=== PATIENT | male | born 1960 | race Two or more races ===

== ENCOUNTER 2018-02-24 08:06 | Day surgery (SDC) | payer OTHER ==
--- NOTE | 2018-02-09 08:34 | HP ---
DATE OF ADMISSION: 02/24/2018 DATE OF DICTATION: 01/12/2018 REASON FOR ADMISSION: Soft tissue mass, left chest. BRIEF HISTORY: This is a 57-year-old gentleman with a longstanding history of having a mass on the left side of his chest. The mass has gotten larger. He now wishes to have this removed. It occasionally causes him discomfort as well. PAST MEDICAL HISTORY: No coronary disease, hypertension, or diabetes. PAST SURGICAL HISTORY: None. MEDICATIONS: None. ALLERGIES: None. SOCIAL HISTORY: Patient smokes 4-5 cigarettes a day. He does not drink. PHYSICAL EXAMINATION: Left Chest: On the lateral aspect of the left chest, patient has a soft tissue mass, approximately the size of a flattened out egg. It is 3-4 cm in length and probably about 3 cm in width. The mass is mobile anteriorly, but posteriorly, it is clearly tethered. IMPRESSION/PLAN: Suspect intramuscular or subfascial lipoma, left chest. We will plan for excision in the operating room. The indications, alternatives, and complications were discussed. Questions answered. We will plan to obtain written consent the day of surgery. Shawanda SHEARER [id number] cc: Melva Yu MD, [address] [place] [address] [phone]
[2018-02-23 08:24] VITALS: BMI 25.8
[2018-02-24] MEDS ORDERED: ceFAZolin SODIUM 1 GM VIAL IVPB ONE (08:25)
[2018-02-24] MEDS ORDERED: LIDOCAINE 1%/EPI 1:100000 (50 ML MULTI DOSE VIAL) INF ONE (08:30)
[2018-02-24 09:06] VITALS: TEMP 97.6
--- NOTE | 2018-02-24 09:06 | HP ---
DATE OF ADMISSION: 02/24/2018 BRIEF HISTORY: This is a gentleman whom I met in January of 2018, but due to the [facility] guidelines of 30 days, this history and physical is being redictated. Please refer to that previous dictation for complete details. This is a 57-year-old gentleman with a soft tissue mass, left chest. He is here for excision. PAST MEDICAL HISTORY: No coronary artery disease, hypertension, or diabetes. PAST SURGICAL HISTORY: None. MEDICATIONS: None. ALLERGIES: None. SOCIAL HISTORY: Patient smokes 4-5 cigarettes a day, does not drink. PHYSICAL EXAMINATION: Left Chest: There is a soft tissue mass the size of a flattened-out egg. It is approximately 3-4 cm in length and 3 cm in width. The mass is mobile, but tethered posteriorly. IMPRESSION/PLAN: Soft tissue mass, left chest. Findings consistent with probable lipoma. Will plan for excision in the operating room. Shawanda SHEARER [id number] cc: Melva Yu M.D. MTDD
--- NOTE | 2018-02-24 09:51 | OP ---
DATE OF OPERATION: 02/24/2018 PREOPERATIVE DIAGNOSIS: Left chest soft tissue mass, suspect lipoma. POSTOPERATIVE DIAGNOSIS: Left chest subfascial lipoma. PROCEDURE: Excision, left chest subfascial lipoma with 5-cm intermediate wound closure. SURGEON: Franco Concepcion MD CONE MARKER: None. ANESTHESIA: Lauren Larose M.D. (MAC/1% lidocaine without epinephrine). ESTIMATED BLOOD LOSS: Minimal. SPECIMENS: Lipoma. DESCRIPTION OF PROCEDURE: This is a 57-year-old gentleman with a soft tissue mass, left chest. He is here for excision. Patient identified, appropriately positioned on the operating room table (right lateral decubitus). The left chest prepped and draped in the usual sterile fashion with ChloraPrep. Next, 1% Xylocaine with epinephrine was used for local anesthesia, approximately 10 mL. A 5-cm incision overlying the mass was made, deepened to subcutaneous tissue. The mass teased out of the subcutaneous space down to the level of the fascia. Portion of the mass was subfascial. The fascia was then subsequently opened and the mass sharply excised out of the musculature. Hemostasis was achieved with cautery as needed. The fascia was reapproximated with interrupted 3-0 Vicryl suture, the dermis reapproximated with interrupted inverted 3-0 chromic suture, and the skin closed with vertical mattress 3-0 Prolene followed by Dermabond. At the conclusion of this case, sponge counts were correct. ATTESTATION: Brief operative note handwritten on the preprinted form. [facility] will be queried prior to giving narcotics. FRANCO CONCEPCION M.D. /[id number] cc: Melva Yu MD [facility]
[2018-02-24 16:03] VITALS: BP 122/75; PULSE 71
--- NOTE | 2018-02-26 16:42 | PATH ---
Surgical Pathology Report Patient Name: MCKENNA LANDRY [facility]. Rec. 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 Electronically Signed Luanne Souza M.D. Gross Description Received in formalin labeled "left chest lipoma," is a 3.3 x 3.3 x 1.4 cm portion of yellow, lobulated adipose tissue. Sectioning reveals homogeneous yellow, smooth fat. No areas of hemorrhage or necrosis are identified. Resident Hall Director sections are submitted in one cassette. /02/24/2018 saudi/02/24/2018
== END 2018-02-24 10:30 | disposition home or self-care (01) ==
LOC: JASU-SURG 08:06
PROVIDERS: ATTEND Surgery
PROC: 0KBJ0ZZ Excision of Left Thorax Muscle, Open Approach (ICD-10-PCS; principal; 2018-02-24 08:00)
DX: D17.1 Benign lipomatous neoplasm of skin and subcutaneous tissue of trunk (principal)